=== PATIENT | female | born 1965 | race Caucasian/White ===

== ENCOUNTER → 2016-12-20 | Outpatient (CLI) | payer OTHER | LOC: US 08:30 | DX: D72.819 Decreased white blood cell count, unspecified (principal); R16.1 Splenomegaly, not elsewhere classified; Z88.5 Allergy status to narcotic agent | CPT/HCPCS: 76705 ==

== ENCOUNTER → 2017-02-27 | Outpatient (CLI) | payer OTHER | LOC: MAMO 15:00 | DX: Z12.31 Encounter for screening mammogram for malignant neoplasm of breast (principal); Z78.0 Asymptomatic menopausal state | CPT/HCPCS: G0202 ==

== ENCOUNTER → 2017-03-03 | Outpatient (CLI) | payer OTHER | LOC: RAD 14:28 | DX: R53.82 Chronic fatigue, unspecified (principal) | CPT/HCPCS: 71020 ==

== ENCOUNTER → 2017-04-03 | Outpatient (CLI) | payer OTHER | LOC: HEART 192 14:31 → HEART 5 14:31 | DX: J41.0 Simple chronic bronchitis (principal); F17.210 Nicotine dependence, cigarettes, uncomplicated | CPT/HCPCS: 94060 ==

== ENCOUNTER → 2021-03-11 | Outpatient (CLI) | payer MEDICARE, OTHER ==
[~2021-03-11] MED LIST: BACTRIM DS TAB1 EACH PO; PYRIDIUM200 MG PO; ULTRAM50 MG PO
== END ==
LOC: CT 13:38
DX: R31.9 Hematuria, unspecified (principal); N32.89 Other specified disorders of bladder
CPT/HCPCS: Q9967

== ENCOUNTER 2022-05-17 11:54 | Emergency (ER) | payer MEDICARE ==
[2022-05-17 13:24] LABS: HEMOGLOBIN 9.4 gm/dl (12.3-15.3); RED BLOOD COUNT 3.94 M/UL (4.00-5.10); WHITE BLOOD COUNT 4.2 K/UL (4.5-11.0)
[2022-05-17] MEDS ORDERED: MACROBID 100 M100 MG PO (16:48)
== END 2022-05-17 17:30 | disposition home or self-care (01) ==
LOC: ER1 11:54
PROVIDERS: Physician Assistant
DX: N39.0 Urinary tract infection, site not specified (principal); E11.65 Type 2 diabetes mellitus with hyperglycemia; G89.29 Other chronic pain; K21.9 Gastro-esophageal reflux disease without esophagitis; M06.9 Rheumatoid arthritis, unspecified; D64.9 Anemia, unspecified; Z85.41 Personal history of malignant neoplasm of cervix uteri; Z90.49 Acquired absence of other specified parts of digestive tract; Z91.041 Radiographic dye allergy status; Z88.5 Allergy status to narcotic agent; Z91.048 Other nonmedicinal substance allergy status
CPT/HCPCS: 80053; 81001; 82009; 82800; 82962; 85025; 93005; 96361; 96374; 96375; 99284; J1885; J2270; J2405

== ENCOUNTER → 2022-06-27 | Outpatient (CLI) | payer MEDICARE ==
[~2022-06-27] MED LIST changes: +MACROBID 100 M100 MG PO
== END ==
LOC: CT 08:53
DX: K68.12 Psoas muscle abscess (principal)
CPT/HCPCS: Q9967

== ENCOUNTER 2022-06-30 18:24 | Emergency (ER) | payer MEDICARE | END 2022-06-30 23:10 | disposition home or self-care (01) | LOC: ER1 18:24 | DX: Z45.2 Encounter for adjustment and management of vascular access device (principal); K68.12 Psoas muscle abscess; Z96.0 Presence of urogenital implants; Z87.440 Personal history of urinary (tract) infections; E11.9 Type 2 diabetes mellitus without complications; Z88.5 Allergy status to narcotic agent | CPT/HCPCS: 99283 ==

== ENCOUNTER 2022-07-09 17:10 | Emergency (ER) | payer MEDICARE ==
[2022-07-09 19:13] LABS: HEMOGLOBIN 10.5 gm/dl (12.3-15.3); RED BLOOD COUNT 3.77 M/UL (4.00-5.10); WHITE BLOOD COUNT 3.6 K/UL (4.5-11.0)
== END 2022-07-09 23:39 | disposition short-term general hospital (02) ==
LOC: ER1 17:10
PROVIDERS: Student in an Organized Health Care Education/Training Program
DX: N12 Tubulo-interstitial nephritis, not specified as acute or chronic (principal); E11.9 Type 2 diabetes mellitus without complications; Z20.822 Contact with and (suspected) exposure to COVID-19
CPT/HCPCS: 80053; 81001; 85025; 87040; 96374; 96375; 96376; 99285; J2270; J2405; Q9967; U0002